=== PATIENT | male | born 1940 ===

== ENCOUNTER 2021-01-26 20:09 | Inpatient (IN) ==
[2021-01-26] MEDS: PHENYLEPHRINE DRIP 40 MG/250 ML PREMIX IV SCH ×2 (21:48→23:40)
[2021-01-26] MEDS ORDERED: AMIODARONE INJ 450 MG in DEXTROSE 5% 241 ML IV SCH (22:05)
[2021-01-26] MEDS ORDERED: SODIUM BICARBONATE 50 MEQ/50 ML VIAL IV ONE ×2 (22:12→22:29)
[2021-01-26] MEDS ORDERED: MIDAZOLAM 2 MG/2 ML VIAL ONE ×2 (22:15→22:25)
[2021-01-26] MEDS ORDERED: MIDAZOLAM 2 MG/2 ML VIAL IV ONE ×2 (22:16→22:26)
[2021-01-26] MEDS ORDERED: EPINEPHrine 1 MG/ML VIAL ONE (22:21)
[2021-01-26] MEDS ORDERED: AMIODARONE 450 MG/9 ML VIAL IV ONE (22:21)
[2021-01-26 22:25] LABS: ABG Base Excess -12.2 MMOL/L (-2.5-2.5); ABG HCO3 14.9 MMOL/L (20-26); ABG Oxygen Saturation 97.9 % (95-100); ABG PCO2 39.4 MM HG (35-48); ABG TCO2 14.4 MMOL/L (23-27); Glucose Heart Surgery 293 MG/DL (74-106); Hematocrit Heart Surgery 29.5 PERCENT (42-52); Hemoglobin Heart Surgery 9.5 G/DL (14.0-18.0); Potassium Heart/CVR 4.2 MMOL/L (3.5-5.1)
[2021-01-26 22:27] LABS: ABG PH 7.198 (7.35-7.45)
[2021-01-26 22:32] LABS: Hematocrit 29.7 VOL% (42.0-52.0); Hemoglobin 9.4 GM/DL (14.0-18.0); Immature Granulocytes % 2.1 %; Immature Granulocytes Absolute 0.22 #; Lymphocytes # 0.9 10*3/uL (1.4-4.0); Lymphocytes % 8.7 % (21.2-54.2); Mean Corpuscular HGB Conc 31.6 GM/DL (32-36); Mean Corpuscular Volume 95.8 FL (87-102); Mean Platelet Volume 11.7 FL (9.6-12.0); Monocytes % 3.4 % (1.7-12.7); Neutrophils % 85.8 % (38.7-73.9); Platelet Count 141 T/CUMM (130-400); Red Cell Distribution Width 14.2 % (9.3-17.3); White Blood Count 10.5 T/CUMM (4-12)
[2021-01-26 22:37] LABS: INR 2.2; PT Patient Result 23.5 SECS (10.5-12.0)
[2021-01-26 22:45] LABS: Alanine Aminotransferase 94 U/L (16-61); Albumin 2.5 G/DL (3.4-5.0); Alkaline Phosphatase 63 U/L (45-117); Aspartate Amino Transferase 165 U/L (0-37); Blood Urea Nitrogen 43 MG/DL (7-18); CKMB % 0.9 %; Calcium 7.1 MG/DL (8.5-10.1); Carbon Dioxide 17 MMOL/L (21-32); Estimated Glom Filtration Rate 19 ML/MIN; Glucose 228 MG/DL (74-106); Osmolality,Calculated 277.8 MOS/KG (273-304); Potassium 4.4 MMOL/L (3.5-5.1); Sodium 130 MMOL/L (136-145); Troponin I 0.043 NG/ML (0.00-0.045)
[2021-01-26] MEDS ORDERED: PHENYLEPHRINE DRIP 40 MG/250 ML PREMIX IV ONE (22:52)
[2021-01-26 22:53] LABS: Burr Cells 2+; Ovalocytes 2+; Platelet Estimate Normal
[2021-01-26] MEDS ORDERED: MORPHINE 4 MG/1 ML VIAL IV PRN (23:34)
[2021-01-26] MEDS ORDERED: ALBUTEROL 2.5 MG/3 ML NEB RESP TX PRN (23:34)
[2021-01-26] MEDS ORDERED: ONDANSETRON 4 MG/2 ML VIAL IV PRN (23:34)
[2021-01-26] MEDS ORDERED: PANTOPRAZOLE 40 MG VIAL IV SCH (23:45)
[2021-01-27] MEDS: MIDAZOLAM 100 MG in SODIUM CHLORIDE 0.9% 80 ML IV PRN ×2 (00:14→13:00)
[2021-01-27] MEDS ORDERED: PHENYLEPHRINE IV ONE (00:37)
[2021-01-27 01:17] LABS: Basophils % 0.1 % (0.0-0.8); Eosinophils % 0.1 % (0.00-10.9); Hematocrit 31.6 VOL% (42.0-52.0); Hemoglobin 9.9 GM/DL (14.0-18.0); Lymphocytes # 0.2 10*3/uL (1.4-4.0); Lymphocytes % 1.2 % (21.2-54.2); Mean Corpuscular HGB Conc 31.3 GM/DL (32-36); Mean Corpuscular Volume 96.6 FL (87-102); Mean Platelet Volume 11.7 FL (9.6-12.0); Neutrophils % 92.6 % (38.7-73.9); Platelet Count 176 T/CUMM (130-400); Red Blood Count 3.27 MC/CUMM (3.8-5.5); Red Cell Distribution Width 14.3 % (9.3-17.3)
[2021-01-27 01:18] LABS: White Blood Count 19.6 T/CUMM (4-12)
[2021-01-27 01:32] LABS: Albumin 2.7 G/DL (3.4-5.0); Bilirubin,Total 1.2 MG/DL (0.2-1.0); Calcium 8.1 MG/DL (8.5-10.1); Osmolality,Calculated 279.8 MOS/KG (273-304); Potassium 4.3 MMOL/L (3.5-5.1); Total Protein 5.5 G/DL (6.4-8.2)
[2021-01-27] MEDS: MEROPENEM 500 MG in SODIUM CHLORIDE 0.9% 100 ML IV SCH ×2 (01:39→13:16)
[2021-01-27 01:46] LABS: Band Neutrophils 3 % (0-10); Lymphocytes 2 % (20-55); Segmented Neutrophils 90 % (50-85); Total Cells Counted 100
[2021-01-27 01:47] LABS: Hypochromasia Slight; Ovalocytes 1+; Platelet Estimate Normal
[2021-01-27] MEDS: LACTATED RINGERS 1,000 ML IV SCH ×2 (01:50→11:45)
[2021-01-27] MEDS ORDERED: AMIODARONE 150 MG/3 ML VIAL ONE (02:02)
[2021-01-27] MEDS ORDERED: EPINEPHrine 1 MG/10 ML SYRINGE ONE (02:02)
[2021-01-27] MEDS ORDERED: SODIUM BICARBONATE 50 MEQ/50 ML SYRINGE IV ONE (02:02)
[2021-01-27] MEDS ORDERED: DEXTROSE 50% 25 GM/50 ML VIAL IV ONE (02:02)
[2021-01-27] MEDS ORDERED: MAGNESIUM SULFATE 1 GM/2 ML VIAL ONE (02:02)
[2021-01-27] MEDS ORDERED: CALCIUM CHLORIDE 1,000 MG/10 ML SYRINGE IV ONE (02:02)
[2021-01-27] MEDS: PHENYLEPHRINE DRIP 40 MG/250 ML PREMIX IV SCH ×2 (02:12→08:37)
[2021-01-27 03:10] LABS: ABG HCO3 16.4 MMOL/L (20-26); ABG Oxygen Saturation 99.2 % (95-100); ABG PCO2 31.3 MM HG (35-48); ABG PH 7.301 (7.35-7.45); ABG TCO2 14.2 MMOL/L (23-27)
[2021-01-27 03:40] VITALS: BP 146/59
[2021-01-27] MEDS ORDERED: AMIODARONE INJ 450 MG in DEXTROSE 5% 241 ML IV SCH (05:00)
[2021-01-27] MEDS ORDERED: AMIODARONE 450 MG/9 ML VIAL IV ONE (05:52)
[2021-01-27 05:54] LABS: Basophils % 0.1 % (0.0-0.8); Hematocrit 29.6 VOL% (42.0-52.0); Hemoglobin 9.4 GM/DL (14.0-18.0); Immature Granulocytes % 1.1 %; Immature Granulocytes Absolute 0.24 #; Lymphocytes # 0.2 10*3/uL (1.4-4.0); Lymphocytes % 0.8 % (21.2-54.2); Mean Corpuscular HGB Conc 31.8 GM/DL (32-36); Mean Corpuscular Volume 94.6 FL (87-102); Mean Platelet Volume 11.9 FL (9.6-12.0); Monocytes % 4.9 % (1.7-12.7); Neutrophils % 93.1 % (38.7-73.9); Platelet Count 167 T/CUMM (130-400); Red Blood Count 3.13 MC/CUMM (3.8-5.5); Red Cell Distribution Width 14.2 % (9.3-17.3); White Blood Count 20.9 T/CUMM (4-12)
[2021-01-27 06:10] LABS: INR 2.6
[2021-01-27 06:14] LABS: PT Patient Result 27.5 SECS (10.5-12.0); Partial Thromboplastin Time 50.6 SECS (23.9-33.8)
[2021-01-27 06:20] LABS: Albumin 2.6 G/DL (3.4-5.0); Bilirubin,Total 1.4 MG/DL (0.2-1.0); Calcium 7.8 MG/DL (8.5-10.1); Osmolality,Calculated 283.7 MOS/KG (273-304); Potassium 4.5 MMOL/L (3.5-5.1); Total Protein 5.3 G/DL (6.4-8.2)
[2021-01-27 06:22] LABS: Band Neutrophils 1 % (0-10); Burr Cells Slight; Hypochromasia Slight; Lymphocytes 2 % (20-55); Microcytosis Slight; Ovalocytes Slight; Platelet Estimate Adequate; Segmented Neutrophils 93 % (50-85); Total Cells Counted 100
[2021-01-27 07:24] LABS: Bilirubin,Urine Negative (Negative); Blood, Urine Large mg/dL (Negative); Glucose,Urine (UA) 50 mg/dL (Negative); Ketones,Urine Negative (Negative); Nitrite,Urine Negative (Negative); Protein,Urine >500 MG/DL; RBC,Urine 21594 /HPF (0-4); Squamous Epithelial Cell,Urine Many /HPF (0-10); Urine Appearance Turbid (Clear); Urine Color Brown (Yellow); Urine Specific Gravity 1.025 (1.001-1.035); Urine Urobilinogen 0.2 EU/DL (0.2-1.0)
[2021-01-27] MEDS ORDERED: LORazepam 2 MG/1 ML VIAL IV PRN (14:34)
== END 2021-01-27 15:11 | disposition expired | DRG 208 ==
LOC: N.ICU 21:51
PROVIDERS: ADMIT Internal Medicine; ATTEND Internal Medicine